=== PATIENT | female | born 1950 | race Two or more races ===

== ENCOUNTER 2016-09-01 00:10 | Emergency (ER) | payer MEDICAID ==
[~2016-09-01] VITALS: Ht 152.4 cm; Wt 77.1 kg
[2016-09-01 00:45] LABS: Basophils # (auto) 0.1 uL; Basophils % (auto) 0.7 % (0.0-2.0); Eosinophils # (auto) 0.3 uL; Eosinophils % (auto) 3.8 % (0.0-7.0); Hematocrit 36.2 % (36.0-46.0); Hemoglobin 12.1 g/dL (12.2-16.2); Lymphocytes # (auto) 1.2 uL; Lymphocytes % (auto) 15.4 % (10.0-50.0); Mean Corpuscular Hemoglobin 31.6 pg (28.0-32.0); Mean Corpuscular Hgb Conc. 33.4 g/dL (32.0-36.0); Mean Corpuscular Volume 94.6 fL (80.0-100.0); Mean Platelet Volume 7.3 fL (7.4-10.4); Monocytes # (auto) 0.4 uL; Monocytes % (auto) 5.3 % (0.0-12.0); Neutrophils # (auto) 5.8 uL; Neutrophils % (auto) 74.8 % (37.0-80.0); Platelet Count (auto) 180 10^3/uL (140-450); Red Cell Distribution Width 14.3 % (11.6-16.0); White Blood Cell 7.9 10^3/uL (4.4-10.8)
[2016-09-01 01:06] LABS: Albumin 3.6 g/dL (3.4-5.0); Anion Gap 12 (5-15); BUN/Creatinine Ratio 5.9; Blood Urea Nitrogen 41 mg/dL (7-18); Calcium 7.7 mg/dL (8.5-10.1); Carbon Dioxide 24 mmol/L (21-32); Chloride 105 mmol/L (98-107); GFR African American 8 mL/min; GFR Non-African American 6 mL/min; Glucose 84 mg/dL (74-106); Magnesium 2.8 mg/dL (1.6-2.6); Potassium 4.9 mmol/L (3.5-5.1); Sodium 141 mmol/L (136-145)
[2016-09-01 01:11] LABS: Alkaline Phosphatase 104 U/L (45-117); Bilirubin, Total 0.9 mg/dL (0.2-1.0); Total Protein 6.9 g/dL (6.4-8.2)
[2016-09-01 01:14] LABS: Aspartate Aminotransferase 19 U/L (15-37)
[2016-09-01] MEDS ORDERED: LORazepam 0.5 MG TAB PO ONE (01:15)
[2016-09-01] MEDS ORDERED: ENALAPRILAT 1.25 MG/ML-1ML VIAL IV ONE (01:15)
[2016-09-01 04:25] VITALS: BP 102/49
== END 2016-09-01 04:39 | disposition home or self-care (01) ==
LOC: ER 00:10
DX: F41.9 Anxiety disorder, unspecified (principal); B02.9 Zoster without complications; I13.2 Hypertensive heart and chronic kidney disease with heart failure and with stage 5 chronic kidney disease, or end stage renal disease; N18.6 End stage renal disease; I50.9 Heart failure, unspecified; E11.22 Type 2 diabetes mellitus with diabetic chronic kidney disease; Z99.2 Dependence on renal dialysis
CPT/HCPCS: 36415; 71010; 80053; 83735; 84484; 85025; 93005; 94761; 96374

== ENCOUNTER 2016-10-03 16:09 | Inpatient (IN) | payer MEDICAID ==
[~2016-10-03] VITALS: Ht 152.4 cm; Wt 75.0 kg
[2016-10-03 17:26] LABS: Albumin 3.6 g/dL (3.4-5.0); Alkaline Phosphatase 106 U/L (45-117); Anion Gap 11 (5-15); Aspartate Aminotransferase 27 U/L (15-37); BUN/Creatinine Ratio 6.1; Bilirubin, Total 0.5 mg/dL (0.2-1.0); Blood Urea Nitrogen 41 mg/dL (7-18); Calcium 7.8 mg/dL (8.5-10.1); Carbon Dioxide 23 mmol/L (21-32); Chloride 108 mmol/L (98-107); GFR African American 8 mL/min; GFR Non-African American 7 mL/min; Glucose 91 mg/dL (74-106); Magnesium 2.7 mg/dL (1.6-2.6); Potassium 5.1 mmol/L (3.5-5.1); Sodium 142 mmol/L (136-145); Total Protein 7.4 g/dL (6.4-8.2)
[2016-10-03 17:41] LABS: Basophils # (auto) 0 uL; Basophils % (auto) 0.5 % (0.0-2.0); Eosinophils # (auto) 0.4 uL; Eosinophils % (auto) 4.4 % (0.0-7.0); Hematocrit 37.7 % (36.0-46.0); Hemoglobin 12.3 g/dL (12.2-16.2); Lymphocytes # (auto) 2.3 uL; Mean Corpuscular Hemoglobin 30.8 pg (28.0-32.0); Mean Corpuscular Hgb Conc. 32.8 g/dL (32.0-36.0); Mean Corpuscular Volume 94.1 fL (80.0-100.0); Monocytes # (auto) 0.3 uL; Monocytes % (auto) 3.4 % (0.0-12.0); Neutrophils # (auto) 5.3 uL; Neutrophils % (auto) 63.7 % (37.0-80.0); Platelet Count (auto) 171 10^3/uL (140-450); Red Cell Distribution Width 14.4 % (11.6-16.0); White Blood Cell 8.4 10^3/uL (4.4-10.8)
[2016-10-03 18:17] LABS: Urine Bilirubin Negative (Negative); Urine Blood TRACE /uL (Negative); Urine Color Yellow (Yellow); Urine Ketone Negative (Negative); Urine Nitrite Negative (Negative); Urine RBC <1 /hpf (0 - 4); Urine Squamous Epithelial Cell FEW /hpf (<5); Urine Urobilinogen Normal (Negative); Urine pH 8.5 (5.0-8.0)
[2016-10-03 18:26] LABS: Urine Glucose 1+ mg/dL (Normal)
[2016-10-04] MEDS ORDERED: SODIUM CHLORIDE 0.9% 1,000 ML IV ONE (01:15)
[2016-10-04] MEDS ORDERED: HYDROmorphone HCL 2 MG/ML VL IV ONE (01:15)
[2016-10-04] MEDS ORDERED: ACETAMINOPHEN 325 MG TAB PO PRN (05:45)
[2016-10-04] MEDS ORDERED: ONDANSETRON HCL 4 MG/2 ML VIAL IV PRN (05:45)
[2016-10-04] MEDS ORDERED: DEXTROSE (50%) 50ML SYRG IV PRN (05:45)
[2016-10-04] MEDS: FUROSEMIDE 40 MG TAB PO SCH ×2 (06:13→17:33)
[2016-10-04] MEDS: D5W/SOD CHLO 0.9% 1,000 ML IV SCH (06:14)
[2016-10-04 06:40] LABS: Basophils # (auto) 0 uL; Basophils % (auto) 0.4 % (0.0-2.0); Eosinophils # (auto) 0.1 uL; Eosinophils % (auto) 1.8 % (0.0-7.0); Hematocrit 36.3 % (36.0-46.0); Hemoglobin 12.1 g/dL (12.2-16.2); Lymphocytes # (auto) 1.4 uL; Lymphocytes % (auto) 18.5 % (10.0-50.0); Mean Corpuscular Hemoglobin 30.8 pg (28.0-32.0); Mean Corpuscular Hgb Conc. 33.3 g/dL (32.0-36.0); Mean Corpuscular Volume 92.5 fL (80.0-100.0); Mean Platelet Volume 8.6 fL (7.4-10.4); Monocytes # (auto) 0.2 uL; Monocytes % (auto) 2.5 % (0.0-12.0); Neutrophils # (auto) 5.6 uL; Neutrophils % (auto) 76.8 % (37.0-80.0); Platelet Count (auto) 165 10^3/uL (140-450); Red Cell Distribution Width 14.2 % (11.6-16.0); White Blood Cell 7.3 10^3/uL (4.4-10.8)
[2016-10-04 06:55] LABS: Albumin 3.8 g/dL (3.4-5.0); BUN/Creatinine Ratio 6.2; Potassium 5.4 mmol/L (3.5-5.1)
[2016-10-04 07:16] LABS: Bilirubin, Total 0.6 mg/dL (0.2-1.0); Total Protein 7.4 g/dL (6.4-8.2)
[2016-10-04] MEDS: LEVOTHYROXINE SODIUM 100 MCG TAB PO SCH (07:26)
[2016-10-04] MEDS: InsuLIN REG 1unit/0.01ml Soln (100units/ml) SC SCH ×5 (08:00→23:58)
[2016-10-04] MEDS: ACCU-CHEK COMFORT CURVE STRIP VI SCH ×5 (08:11→23:58)
[2016-10-04 08:45] VITALS: BP 128/69
[2016-10-04 08:48] VITALS: BP 128/69
[2016-10-04] MEDS ORDERED: IBU600T (09:06)
[2016-10-04] MEDS ORDERED: ETAN50IN5 (09:06)
[2016-10-04] MEDS ORDERED: FURO40TA4 (09:06)
[2016-10-04] MEDS ORDERED: GLIP-116 (09:06)
[2016-10-04] MEDS ORDERED: SIMV10TA84 (09:06)
[2016-10-04] MEDS ORDERED: CINA30TA2 (09:06)
[2016-10-04] MEDS ORDERED: HYDR-3682 (09:06)
[2016-10-04] MEDS ORDERED: SEVE800T (09:06)
[2016-10-04] MEDS ORDERED: LEVO100T8 (09:06)
[2016-10-04] MEDS ORDERED: ASPI81TA13 (09:06)
[2016-10-04] MEDS ORDERED: GABA300C8 (09:06)
[2016-10-04] MEDS ORDERED: B-CO-5 (09:06)
[2016-10-04] MEDS ORDERED: BISA-13 (09:06)
[2016-10-04] MEDS ORDERED: ERGO1CAP6 (09:06)
[2016-10-04] MEDS ORDERED: LORA1TAB12 (09:06)
[2016-10-04] MEDS ORDERED: SODIUM CHL 0.9% 1000 ML BAG XX ONE (09:30)
[2016-10-04] MEDS ORDERED: FAMOTIDINE 20 MG TAB PO SCH (10:00)
[2016-10-04] MEDS: ENOXAPARIN SOD 30 MG/0.3 ML SYRINGE SC SCH (11:01)
[2016-10-04] MEDS: B-COMPLEX W/ C & FOLIC ACID(NEPHROVITE TAB) PO SCH (11:02)
[2016-10-04] MEDS: MORPHINE SULF INJ 2 MG/ML SYRINGE 1ML IV PRN ×2 (11:29→20:22)
[2016-10-04 12:00] VITALS: BP 135/73
[2016-10-04 16:30] VITALS: BP 117/69
[2016-10-04 20:00] VITALS: BP 101/59
[2016-10-04] MEDS: PANTOPRAZOLE 40 MG TAB PO SCH (21:36)
[2016-10-04 21:40] VITALS: BP 111/60
[2016-10-04] MEDS ORDERED: PRAVASTATIN SODIUM 20 MG TAB PO SCH (22:00)
[2016-10-04] MEDS ORDERED: PATIENTS OWN MEDICATION (simvastatin 10 MG) PO SCH ×2 (22:00)
[2016-10-05] MEDS: InsuLIN REG 1unit/0.01ml Soln (100units/ml) SC SCH ×3 (04:00→12:00)
[2016-10-05] MEDS: ACCU-CHEK COMFORT CURVE STRIP VI SCH ×3 (04:01→12:03)
[2016-10-05 04:58] VITALS: BP 107/54
[2016-10-05] MEDS: LEVOTHYROXINE SODIUM 100 MCG TAB PO SCH (06:18)
[2016-10-05] MEDS: FUROSEMIDE 40 MG TAB PO SCH (06:18)
[2016-10-05 06:58] LABS: Albumin 3.5 g/dL (3.4-5.0); BUN/Creatinine Ratio 5.2; Bilirubin, Total 0.6 mg/dL (0.2-1.0); Calcium 8.1 mg/dL (8.5-10.1); Potassium 4.6 mmol/L (3.5-5.1); Total Protein 7.2 g/dL (6.4-8.2)
[2016-10-05 07:00] VITALS: BP 107/54
[2016-10-05 08:00] VITALS: BP 107/54
[2016-10-05 09:07] VITALS: BP 100/64
[2016-10-05] MEDS: B-COMPLEX W/ C & FOLIC ACID(NEPHROVITE TAB) PO SCH (10:21)
[2016-10-05] MEDS: D5W/SOD CHLO 0.9% 1,000 ML IV SCH (10:21)
[2016-10-05] MEDS: PANTOPRAZOLE 40 MG TAB PO SCH (10:22)
[2016-10-05] MEDS: ENOXAPARIN SOD 30 MG/0.3 ML SYRINGE SC SCH (10:22)
[2016-10-05] MEDS: HYDROcodone-ACET 5/325MG TAB PO PRN ×2 (10:24→14:27)
[2016-10-05 10:38] VITALS: BP 107/54
[2016-10-06] MEDS ORDERED: SODIUM CHL 0.9% 1000 ML BAG XX ONE (12:00)
== END 2016-10-05 14:39 | disposition home or self-care (01) | DRG 282 ==
LOC: ER 16:09 → OVERFLOW 16:10 → CENTRAL 10-04 09:13
PROVIDERS: ADMIT Nurse Practitioner; ATTEND Internal Medicine
PROC: 5A1D00Z (ICD-10-PCS; principal; 2016-10-04)
DX: K85.90 Acute pancreatitis without necrosis or infection, unspecified (principal); I13.2 Hypertensive heart and chronic kidney disease with heart failure and with stage 5 chronic kidney disease, or end stage renal disease; N25.81 Secondary hyperparathyroidism of renal origin; E11.22 Type 2 diabetes mellitus with diabetic chronic kidney disease; N18.6 End stage renal disease; E11.42 Type 2 diabetes mellitus with diabetic polyneuropathy; E03.9 Hypothyroidism, unspecified; E78.5 Hyperlipidemia, unspecified; E83.42 Hypomagnesemia; E83.51 Hypocalcemia; E87.5 Hyperkalemia; I50.9 Heart failure, unspecified; M45.9 Ankylosing spondylitis of unspecified sites in spine; Z82.49 Family history of ischemic heart disease and other diseases of the circulatory system; Z83.3 Family history of diabetes mellitus; Z87.442 Personal history of urinary calculi; Z99.2 Dependence on renal dialysis
CPT/HCPCS: 36415; 74176; 80053; 81001; 82962; 83690; 83735; 84132; 84484; 85025; 90935; 93005; 96361; 96374; J7042

== ENCOUNTER 2016-10-11 10:20 | Emergency (ER) | payer MEDICAID ==
[~2016-10-11] VITALS: Ht 152.4 cm; Wt 72.6 kg
[~2016-10-11 10:20] MED LIST: ASPI81TA13; B-CO-5; BISA-13; CINA30TA2; ERGO1CAP6; ETAN50IN5; FURO40TA4; GABA300C8; GLIP-116; HYDR-3682; IBU600T; LEVO100T8; LORA1TAB12; SEVE800T; SIMV10TA84
[2016-10-11 10:58] LABS: Basophils # (auto) 0 uL; Basophils % (auto) 0.3 % (0.0-2.0); Eosinophils # (auto) 0.1 uL; Eosinophils % (auto) 1.8 % (0.0-7.0); Lymphocytes # (auto) 1.8 uL; Lymphocytes % (auto) 27.7 % (10.0-50.0); Mean Corpuscular Hemoglobin 31.3 pg (28.0-32.0); Mean Corpuscular Hgb Conc. 34.2 g/dL (32.0-36.0); Mean Corpuscular Volume 91.7 fL (80.0-100.0); Monocytes # (auto) 0.3 uL; Monocytes % (auto) 5.2 % (0.0-12.0); Neutrophils # (auto) 4.1 uL; Platelet Count (auto) 168 10^3/uL (140-450); Red Cell Distribution Width 13.9 % (11.6-16.0); White Blood Cell 6.4 10^3/uL (4.4-10.8)
[2016-10-11 11:29] LABS: Albumin 3.7 g/dL (3.4-5.0); Alkaline Phosphatase 96 U/L (45-117); Amylase 59 U/L (25-115); Anion Gap 9 (5-15); Aspartate Aminotransferase 18 U/L (15-37); BUN/Creatinine Ratio 5.8; Bilirubin, Total 0.8 mg/dL (0.2-1.0); Blood Urea Nitrogen 21 mg/dL (7-18); Calcium 8.6 mg/dL (8.5-10.1); Carbon Dioxide 30 mmol/L (21-32); Chloride 98 mmol/L (98-107); GFR African American 16 mL/min; GFR Non-African American 14 mL/min; Glucose 94 mg/dL (74-106); Magnesium 2.4 mg/dL (1.6-2.6); Sodium 137 mmol/L (136-145); Total Protein 7.5 g/dL (6.4-8.2)
[2016-10-11 14:12] VITALS: BP 95/53
[2016-10-11] MEDS ORDERED: MORPHINE SULF INJ 2 MG/ML SYRINGE 1ML IV ONE (15:00)
[2016-10-11] MEDS ORDERED: SODIUM CHLORIDE 0.9% 500 ML IV ONE (15:00)
[2016-10-11 15:16] LABS: Urine RBC None Seen /hpf (0 - 4)
[2016-10-11 15:33] LABS: Urine Bilirubin Negative (Negative); Urine Blood Negative /uL (Negative); Urine Color Yellow (Yellow); Urine Glucose Normal (Normal); Urine Ketone Negative (Negative); Urine Nitrite Negative (Negative); Urine Squamous Epithelial Cell MOD /hpf (<5); Urine Urobilinogen Normal (Negative)
== END 2016-10-11 16:14 | disposition home or self-care (01) ==
LOC: EDBD 10:20 → ER 10:22
DX: N20.0 Calculus of kidney (principal); E13.22 Other specified diabetes mellitus with diabetic chronic kidney disease; I13.2 Hypertensive heart and chronic kidney disease with heart failure and with stage 5 chronic kidney disease, or end stage renal disease; I50.9 Heart failure, unspecified; N18.6 End stage renal disease; Z79.899 Other long term (current) drug therapy
CPT/HCPCS: 36415; 74176; 80053; 81001; 82150; 83690; 83735; 84484; 85025; 93005; 96361; 96374; 99285; J2270; J7040

== ENCOUNTER 2016-12-14 11:04 | Emergency (ER) | payer MEDICARE, MEDICAID ==
[~2016-12-14] VITALS: Ht 157.5 cm; Wt 72.6 kg
[~2016-12-14 11:04] MED LIST changes: +GABA-497; -GABA300C8
[2016-12-14] MEDS ORDERED: KETOROLAC TROMETH 60MG/2ML VIAL IM ONE (11:15)
[2016-12-14 12:10] LABS: Basophils # (auto) 0 uL; Basophils % (auto) 0.4 % (0.0-2.0); CONDITION Y; Eosinophils # (auto) 0.1 uL; Eosinophils % (auto) 2.1 % (0.0-7.0); Hematocrit 34.7 % (36.0-46.0); Hemoglobin 12.1 g/dL (12.2-16.2); Lymphocytes # (auto) 1.6 uL; Mean Corpuscular Hemoglobin 32.3 pg (28.0-32.0); Mean Corpuscular Hgb Conc. 34.8 g/dL (32.0-36.0); Mean Corpuscular Volume 92.8 fL (80.0-100.0); Mean Platelet Volume 8.4 fL (7.4-10.4); Monocytes # (auto) 0.3 uL; Monocytes % (auto) 4.8 % (0.0-12.0); Neutrophils # (auto) 4.3 uL; Neutrophils % (auto) 67.7 % (37.0-80.0); Platelet Count (auto) 152 10^3/uL (140-450); Red Cell Distribution Width 13.4 % (11.6-16.0); White Blood Cell 6.3 10^3/uL (4.4-10.8)
[2016-12-14 12:27] LABS: Albumin 3.8 g/dL (3.4-5.0); BUN/Creatinine Ratio 7.3; Bilirubin, Total 0.4 mg/dL (0.2-1.0); Calcium 8.9 mg/dL (8.5-10.1); Potassium 5.4 mmol/L (3.5-5.1); Total Protein 7.4 g/dL (6.4-8.2); Uric Acid 5.1 mg/dL (2.6-6.0)
[2016-12-14 12:46] LABS: Urine Bilirubin Negative (Negative); Urine Blood Negative /uL (Negative); Urine Color Yellow (Yellow); Urine Glucose Normal (Normal); Urine Ketone Negative (Negative); Urine Nitrite Negative (Negative); Urine RBC <1 /hpf (0 - 4); Urine Squamous Epithelial Cell FEW /hpf (<5); Urine Urobilinogen Normal (Negative); Urine pH 8.5 (5.0-8.0)
[2016-12-14 14:40] VITALS: BP 125/66
== END 2016-12-14 16:18 | disposition home or self-care (01) ==
LOC: ER 11:04 → EDBD 11:04 → ER 16:18
DX: M25.561 Pain in right knee (principal); N18.6 End stage renal disease; I13.2 Hypertensive heart and chronic kidney disease with heart failure and with stage 5 chronic kidney disease, or end stage renal disease; I50.9 Heart failure, unspecified; E11.22 Type 2 diabetes mellitus with diabetic chronic kidney disease; Z79.82 Long term (current) use of aspirin; Z87.442 Personal history of urinary calculi; Z79.899 Other long term (current) drug therapy
CPT/HCPCS: 36415; 73700; 80053; 81001; 84550; 85025; 85652; 96372; 99285; J1885

== ENCOUNTER 2017-06-01 10:02 | Emergency (ER) | payer MEDICARE, MEDICAID ==
[~2017-06-01] VITALS: Ht 160 cm; Wt 81.6 kg
[~2017-06-01 10:02] MED LIST changes: -GABA-497; +GABA300C10
[2017-06-01] MEDS ORDERED: ASPirin 81 mg TAB PO ONE (10:45)
[2017-06-01] MEDS ORDERED: NITROGLYCERIN 0.4 MG SL TAB SL ONE (10:45)
[2017-06-01 11:53] LABS: Basophils # (auto) 0 uL; Basophils % (auto) 0.3 % (0.0-2.0); Eosinophils # (auto) 0.3 uL; Eosinophils % (auto) 4.6 % (0.0-7.0); Hematocrit 33.5 % (36.0-46.0); Hemoglobin 11.5 g/dL (12.2-16.2); Lymphocytes # (auto) 1.2 uL; Lymphocytes % (auto) 16.5 % (10.0-50.0); Mean Corpuscular Hemoglobin 32.2 pg (28.0-32.0); Mean Corpuscular Hgb Conc. 34.3 g/dL (32.0-36.0); Mean Corpuscular Volume 93.7 fL (80.0-100.0); Monocytes # (auto) 0.5 uL; Monocytes % (auto) 6.6 % (0.0-12.0); Neutrophils # (auto) 5.1 uL; Nucleated Red Blood Cells % 0.1 %; Platelet Count (auto) 159 10^3/uL (140-450); Red Blood Cells 3.57 10^6/uL (4.0-5.20); Red Cell Distribution Width 13.6 % (11.8-14.3); White Blood Cell 7.1 10^3/uL (4.4-10.8)
[2017-06-01 12:25] LABS: Albumin 3.7 g/dL (3.4-5.0); Bilirubin, Total 0.5 mg/dL (0.2-1.0); Calcium 8.8 mg/dL (8.5-10.1); Potassium 4.1 mmol/L (3.5-5.1); Total Protein 8.1 g/dL (6.4-8.2)
[2017-06-01 13:29] VITALS: BP 117/57
== END 2017-06-01 13:44 | disposition home or self-care (01) ==
LOC: EDBD 10:02 → ER 10:02
DX: R07.89 Other chest pain (principal); E11.22 Type 2 diabetes mellitus with diabetic chronic kidney disease; I13.2 Hypertensive heart and chronic kidney disease with heart failure and with stage 5 chronic kidney disease, or end stage renal disease; I50.9 Heart failure, unspecified; N18.6 End stage renal disease; Z99.2 Dependence on renal dialysis; E78.5 Hyperlipidemia, unspecified; Z82.49 Family history of ischemic heart disease and other diseases of the circulatory system; Z83.3 Family history of diabetes mellitus
CPT/HCPCS: 36415; 71046; 80053; 84484; 85025; 93005

== ENCOUNTER 2017-08-08 09:32 | Emergency (ER) | payer MEDICARE, MEDICAID ==
[~2017-08-08] VITALS: Ht 162.6 cm; Wt 86.2 kg
[2017-08-08 09:57] VITALS: BP 165/79
[2017-08-08] MEDS ORDERED: cloNIDine HCL 0.1 MG TAB PO ONE (10:00)
[2017-08-08] MEDS ORDERED: HYDROcodone-ACET 5/325MG TAB PO ONE (10:00)
[2017-08-08 10:15] LABS: Basophils # (auto) 0 uL; Basophils % (auto) 0.5 % (0.0-2.0); Eosinophils # (auto) 0.1 uL; Eosinophils % (auto) 1.7 % (0.0-7.0); Hematocrit 35.7 % (36.0-46.0); Hemoglobin 12.2 g/dL (12.2-16.2); Lymphocytes # (auto) 1.2 uL; Lymphocytes % (auto) 16.5 % (10.0-50.0); Mean Corpuscular Hemoglobin 32.6 pg (28.0-32.0); Mean Corpuscular Hgb Conc. 34.2 g/dL (32.0-36.0); Mean Corpuscular Volume 95.1 fL (80.0-100.0); Monocytes # (auto) 0.3 uL; Monocytes % (auto) 3.9 % (0.0-12.0); Neutrophils # (auto) 5.8 uL; Neutrophils % (auto) 77.4 % (37.0-80.0); Platelet Count (auto) 189 10^3/uL (140-450); Red Blood Cells 3.75 10^6/uL (4.0-5.20); Red Cell Distribution Width 13.6 % (11.8-14.3); White Blood Cell 7.5 10^3/uL (4.4-10.8)
[2017-08-08 10:35] LABS: Alanine Aminotransferase 22 U/L (13-56); Albumin 3.8 g/dL (3.4-5.0); Alkaline Phosphatase 84 U/L (45-117); Anion Gap 9 (5-15); Aspartate Aminotransferase 20 U/L (15-37); Bilirubin, Total 0.6 mg/dL (0.2-1.0); Blood Urea Nitrogen 22 mg/dL (7-18); Carbon Dioxide 29 mmol/L (21-32); Chloride 100 mmol/L (98-107); GFR African American 13 mL/min; GFR Non-African American 11 mL/min; Glucose 97 mg/dL (74-106); Sodium 138 mmol/L (136-145); Total Protein 8.2 g/dL (6.4-8.2)
== END 2017-08-08 11:55 | disposition home or self-care (01) ==
LOC: ER 09:32 → EDBD 09:32 → ER 11:55
DX: I13.2 Hypertensive heart and chronic kidney disease with heart failure and with stage 5 chronic kidney disease, or end stage renal disease (principal); E11.22 Type 2 diabetes mellitus with diabetic chronic kidney disease; N18.6 End stage renal disease; I50.9 Heart failure, unspecified; E07.89 Other specified disorders of thyroid; M19.90 Unspecified osteoarthritis, unspecified site; Z90.89 Acquired absence of other organs; Z90.710 Acquired absence of both cervix and uterus; Z79.899 Other long term (current) drug therapy
CPT/HCPCS: 36415; 71045; 80053; 84484; 85025; 93005; 94761

== ENCOUNTER 2018-01-11 17:36 | Emergency (ER) | payer MEDICARE, MEDICAID ==
[~2018-01-11] VITALS: Ht 162.6 cm; Wt 70.3 kg
[2018-01-11] MEDS ORDERED: HYDROcodone-ACET 10/325MG TAB PO ONE (18:45)
[2018-01-11] MEDS ORDERED: MORPHINE SULFATE 4 MG/ML SYR/VIAL IV ONE (22:45)
[2018-01-11] MEDS ORDERED: ONDANSETRON HCL 4 MG/2 ML VIAL IV ONE (22:45)
[2018-01-12 00:26] VITALS: BP 172/86
== END 2018-01-12 00:35 | disposition short-term general hospital (02) ==
LOC: ER 17:36 → EDBD 17:36 → ER 01-12 00:35
DX: S12.401A Unspecified nondisplaced fracture of fifth cervical vertebra, initial encounter for closed fracture (principal); S12.501A Unspecified nondisplaced fracture of sixth cervical vertebra, initial encounter for closed fracture; E11.22 Type 2 diabetes mellitus with diabetic chronic kidney disease; I13.2 Hypertensive heart and chronic kidney disease with heart failure and with stage 5 chronic kidney disease, or end stage renal disease; N18.6 End stage renal disease; E78.5 Hyperlipidemia, unspecified; M19.90 Unspecified osteoarthritis, unspecified site; Z90.710 Acquired absence of both cervix and uterus; W19.XXXA Unspecified fall, initial encounter; Y93.89 Activity, other specified; Y92.89 Other specified places as the place of occurrence of the external cause; Y99.8 Other external cause status
CPT/HCPCS: 70450; 72125; 96374; 96375; 99285; J2270; J2405

== ENCOUNTER 2018-01-15 09:34 | Emergency (ER) | payer MEDICARE, MEDICAID ==
[~2018-01-15] VITALS: Ht 162.6 cm; Wt 68.0 kg
[2018-01-15] MEDS ORDERED: MORPHINE SULFATE 4 MG/ML SYR/VIAL IV ONE ×2 (11:00→17:15)
[2018-01-15] MEDS ORDERED: METOCLOPRAMIDE HCL 5MG/ml INJ 2ml VIAL IV ONE ×2 (11:00→17:15)
[2018-01-15] MEDS ORDERED: NOREPINEPHRINE 8 MG/250ML KIT 250 ML IV SCH (12:00)
[2018-01-15] MEDS ORDERED: NOREPINEPHRINE 8 MG/250ML KIT 250 ML IV ONE (12:03)
[2018-01-15 13:26] LABS: Basophils # (auto) 0 uL; Eosinophils # (auto) 0 uL; Eosinophils % (auto) 0.1 % (0.0-7.0); Hematocrit 22.2 % (36.0-46.0); Lymphocytes # (auto) 0.7 uL; Mean Corpuscular Volume 94.7 fL (80.0-100.0); Red Blood Cells 2.34 10^6/uL (4.0-5.20)
[2018-01-15 13:28] LABS: Basophils % (auto) 0.2 % (0.0-2.0); Hemoglobin 7.5 g/dL (12.2-16.2); Mean Corpuscular Hgb Conc. 33.8 g/dL (32.0-36.0); Monocytes # (auto) 0.5 uL; Monocytes % (auto) 3.3 % (0.0-12.0); Neutrophils # (auto) 12.6 uL; Neutrophils % (auto) 91.4 % (37.0-80.0); Nucleated Red Blood Cells % 0.1 %; Platelet Count (auto) 200 10^3/uL (140-450); Red Cell Distribution Width 13.8 % (11.8-14.3); White Blood Cell 13.8 10^3/uL (4.4-10.8)
[2018-01-15 13:37] LABS: Albumin 2.7 g/dL (3.4-5.0); BUN/Creatinine Ratio 6.4; Bilirubin, Total 0.6 mg/dL (0.2-1.0); Calcium 6.6 mg/dL (8.5-10.1); Potassium 4.9 mmol/L (3.5-5.1); Total Protein 6.1 g/dL (6.4-8.2)
[2018-01-15 13:40] LABS: INR 1.11 (0.9-1.15); Partial Thromboplastin Time 22.4 sec (23.78-33.04); Prothrombin Time 11.8 sec (9.27-12.13)
[2018-01-15 17:12] VITALS: BP 109/53
== END 2018-01-15 17:36 | disposition short-term general hospital (02) ==
LOC: EDBD 09:34 → ER 09:38
DX: S12.9XXA Fracture of neck, unspecified, initial encounter (principal); G82.20 Paraplegia, unspecified; E11.22 Type 2 diabetes mellitus with diabetic chronic kidney disease; I13.2 Hypertensive heart and chronic kidney disease with heart failure and with stage 5 chronic kidney disease, or end stage renal disease; N18.6 End stage renal disease; M19.90 Unspecified osteoarthritis, unspecified site; E78.5 Hyperlipidemia, unspecified; Z90.710 Acquired absence of both cervix and uterus; W19.XXXA Unspecified fall, initial encounter; Z91.81 History of falling; Y93.89 Activity, other specified; Y92.89 Other specified places as the place of occurrence of the external cause; Y99.8 Other external cause status
CPT/HCPCS: 36415; 70450; 72125; 80053; 82962; 83880; 85025; 85610; 85730; 93005; 96374; 96375; 96376; 99285; J2270; J2765